=== PATIENT | female | born 1970 | race African-American/Black ===

== ENCOUNTER 2019-11-06 09:53 | Emergency (ER) | payer MEDICARE, OTHER ==
[~2019-11-06] VITALS: Ht 165.1 cm; Wt 72.7 kg
[2019-11-06] MEDS ORDERED: RISP2 PO (10:22)
[2019-11-06] MEDS ORDERED: AMLO2.5T4 PO (10:22)
[2019-11-06 10:56] LABS: BASOPHILS % (AUTO) 0.2 % (0.0-2.0); EOSINOPHILS % (AUTO) 9.3 % (1.0-6.0); HEMATOCRIT 37.1 % (36-46); HEMOGLOBIN 11.8 g/dL (12.0-16.0); LYMPHOCYTES # (AUTO) 1.3 K/uL (1.0-4.8); MEAN CORPUSCULAR HGB CONC 31.9 G/dL (31.0-37.0); MEAN CORPUSCULAR VOLUME 88 fL (80-100); MONOCYTES # (AUTO) 0.6 K/uL (0.1-1.0); MONOCYTES % (AUTO) 9.6 % (2.0-9.0); NEUTROPHILS # (AUTO) 3.6 K/uL (1.8-7.7); NEUTROPHILS % (AUTO) 58.9 % (40.0-70.0); PLATELET COUNT (AUTO) 272 K/uL (150-450); RED BLOOD CELL COUNT(AUTO) 4.23 MIL/uL (4.00-5.20)
[2019-11-06 11:07] LABS: CALCIUM, TOTAL 9.2 mg/dL (8.8-10.5); CREATININE 1.17 mg/dL (0.60-1.30)
[2019-11-06 11:18] LABS: ALBUMIN 3.4 g/dL (3.4-5.0); BILIRUBIN,TOTAL 0.3 mg/dL (0.1-1.0); TOTAL PROTEIN, SERUM 8.6 g/dL (6.4-8.2)
[2019-11-06 12:32] VITALS: BP 107/76
[2019-11-06 12:38] LABS: APPEARANCE,URINE CLOUDY (CLEAR); BILIRUBIN,URINE NEGATIVE (NEGATIVE); GLUCOSE, URINE (UA) NEGATIVE (NEGATIVE); KETONES,URINE NEGATIVE (NEGATIVE); LEUKOCYTE ESTERASE ,URINE LARGE (NEGATIVE); NITRATE,URINE POSITIVE (NEGATIVE); OCCULT BLOOD,URINE TRACE (NEGATIVE); PH,URINE 7.5 (5.0-8.0); PROTEIN,URINE NEGATIVE (NEGATIVE); UROBILINOGEN,URINE 0.2 mg/dL (<=1.0)
[2019-11-06 12:48] LABS: BACTERIA,URINE Many /HPF (None Seen); RBC,URINE 0-2 /HPF (0-2)
[2019-11-06 12:49] LABS: SQUAMOUS EPITHELIAL CELL,UR Few /LPF (None Seen)
== END 2019-11-06 13:38 | disposition home or self-care (01) ==
LOC: EMS 09:57
DX: N39.0 Urinary tract infection, site not specified (principal); R11.2 Nausea with vomiting, unspecified; I10 Essential (primary) hypertension; F20.9 Schizophrenia, unspecified
CPT/HCPCS: 87086

== ENCOUNTER 2024-10-31 16:56 | Inpatient (IN) | payer MEDICARE, OTHER ==
[~2024-10-31] VITALS: Ht 162.6 cm; Wt 77.2 kg
[~2024-10-31 16:56] MED LIST: AMLO2.5T96 PO; RISP2TAB45 PO
[2024-10-31] MEDS ORDERED: BENZ2TAB84 PO (17:18)
[2024-10-31] MEDS ORDERED: CHLO100T36 PO (17:18)
[2024-10-31] MEDS ORDERED: DIVA-111 PO (17:18)
[2024-10-31] MEDS ORDERED: AMLO5TAB66 PO (17:18)
[2024-10-31] MEDS ORDERED: OXYB5TAB20 PO (17:18)
[2024-10-31] MEDS ORDERED: DOCU-412 PO (17:18)
[2024-10-31] MEDS ORDERED: BISA10SU11 PR (17:18)
[2024-10-31] MEDS ORDERED: BISA-184 PO (17:18)
[2024-10-31 17:38] LABS: COVID AG,FIA SOURCE NASAL SWAB
[2024-10-31 17:45] LABS: SARS-COV2 (COVID) ANTIGEN,FIA Negative (Negative)
[2024-10-31 18:02] LABS: INFLUENZA TYPE A NEGATIVE FOR TYPE A (NEGATIVE); INFLUENZA TYPE B NEGATIVE FOR TYPE B (NEGATIVE)
[2024-10-31] MEDS: ALBUTEROL SULFATE 2.5 MG/0.5 ML NEB SOLUTION NEB ONE (19:45)
[2024-10-31 21:15] LABS: BASOPHILS % (AUTO) 0.4 % (0.0-2.0); EOSINOPHILS % (AUTO) 0.2 % (1.0-6.0); HEMATOCRIT 31.2 % (36-46); LYMPHOCYTES # (AUTO) 1.4 K/uL (1.0-4.8); LYMPHOCYTES % (AUTO) 17.9 % (22.0-44.0); MEAN CORPUSCULAR HEMOGLOBIN 28.3 pg (26.0-34.0); MEAN CORPUSCULAR HGB CONC 31.9 G/dL (31.0-37.0); MEAN CORPUSCULAR VOLUME 89 fL (80-100); MONOCYTES # (AUTO) 1.4 K/uL (0.1-1.0); MONOCYTES % (AUTO) 18.5 % (2.0-9.0); NEUTROPHILS # (AUTO) 4.8 K/uL (1.8-7.7); PLATELET COUNT (AUTO) 159 K/uL (150-450); RED BLOOD CELL COUNT(AUTO) 3.52 MIL/uL (4.00-5.20); RED CELL DISTRIBUTION WIDTH 15.2 % (11.5-14.5); WHITE BLOOD COUNT (AUTO) 7.6 K/uL (4.5-11.0)
[2024-10-31 21:25] LABS: ANION GAP 2 mmol/L (8-16); CARBON DIOXIDE 32 mmol/L (22-29); CHLORIDE 95 mmol/L (98-107); GLOMERULAR FILTR. RATE CALC > 60 mL/min (>60); GLUCOSE,RANDOM 90 mg/dL (70-110); POTASSIUM 4.1 mmol/L (3.5-5.1); SODIUM SERUM 129 mmol/L (136-145); UREA NITROGEN, BLOOD 20 mg/dL (7-18)
[2024-10-31 21:33] LABS: TROPONIN I-HIGH SENSITIVITY 4 ng/L (<51)
[2024-10-31 21:34] LABS: LACTIC ACID 0.6 mmol/L (0.4-2.0)
[2024-10-31 21:38] LABS: B-TYPE NATRIURETIC PEPTIDE 7 pg/mL (0-100)
[2024-10-31 22:02] LABS: APPEARANCE,URINE HAZY (CLEAR); BILIRUBIN,URINE NEGATIVE (NEGATIVE); COLOR,URINE LIGHT YELLOW (YELLOW); GLUCOSE, URINE (UA) NEGATIVE (NEGATIVE); KETONES,URINE NEGATIVE (NEGATIVE); LEUKOCYTE ESTERASE ,URINE LARGE (NEGATIVE); NITRATE,URINE POSITIVE (NEGATIVE); OCCULT BLOOD,URINE NEGATIVE (NEGATIVE); PH,URINE 5.5 (5.0-8.0); PROTEIN,URINE NEGATIVE (NEGATIVE); UROBILINOGEN,URINE <=1.0 mg/dL (<=1.0)
[2024-10-31 22:09] LABS: BACTERIA,URINE Many /HPF (None Seen); RBC,URINE 0-2 /HPF (0-2); SQUAMOUS EPITHELIAL CELL,UR Few /LPF (None Seen); WBC,URINE 51-100 /HPF (0-5)
[2024-10-31] MEDS ORDERED: ACET-784 PO (22:19)
[2024-10-31] MEDS ORDERED: ONDA-104 PO (22:19)
[2024-10-31] MEDS ORDERED: [UNRECOGNIZED DRUG - CODE] PO (22:19)
[2024-10-31] MEDS: CefTRIAXone 1 GM/DEXTROSE 50 ML IV ONE (22:31)
[2024-10-31] MEDS: AZITHROMYCIN 500 MG/NS 250 ML IV ONE (22:31)
[2024-10-31] MEDS ORDERED: ONDANSETRON 4 MG TABLET PO PRN (23:30)
[2024-10-31] MEDS ORDERED: BISACODYL 10 MG RECTAL RECTAL SUPPOSITORY PR PRN (23:30)
[2024-10-31] MEDS ORDERED: MORPHINE SULFATE 2 MG/ML SYRINGE IVP PRN (23:30)
[2024-10-31] MEDS ORDERED: ACETAMINOPHEN 325 MG TABLET PO PRN ×2 (23:30)
[2024-10-31] MEDS ORDERED: MAGNESIUM HYDROXIDE SUSPENSION 30 ML UDCUP PO PRN (23:30)
[2024-10-31] MEDS ORDERED: HYDROCODONE/ACETAMINOPHEN 5-325 MG TABLET PO PRN (23:30)
[2024-10-31] MEDS ORDERED: IPRATROPIUM BROMIDE 0.5 MG/2.5 ML NEB SOLUTION NEB PRN (23:30)
[2024-10-31] MEDS ORDERED: ALBUTEROL SULFATE 2.5 MG/0.5 ML NEB SOLUTION NEB PRN (23:30)
[2024-10-31] MEDS ORDERED: ZOLPIDEM TARTRATE 5 MG TABLET PO PRN (23:30)
[2024-10-31] MEDS ORDERED: ONDANSETRON HCL 4 MG/2 ML VIAL IVP PRN (23:30)
[2024-11-01] VITALS (7 sets, daily range): BP systolic 92–119; BP diastolic 46–80; PULSE 75–99; RESP 16–19; TEMP 97.6–99.4; O2SAT 95–100
[2024-11-01] MEDS: HEPARIN SODIUM,PORCINE 5,000 UNITS/ML VIAL SQ SCH (00:46)
[2024-11-01] MEDS ORDERED: INFLUENZA VIRUS VACCINE TVS (6MO+) 2024-25/PF 45 MCG/0.5 ML SYRINGE IM. ONE (04:15)
[2024-11-01] MEDS: RisperiDONE 2 MG TABLET PO SCH (09:29)
[2024-11-01] MEDS: AmLODIPine BESYLATE 5 MG TABLET PO SCH (09:29)
[2024-11-01] MEDS: OXYBUTYNIN CHLORIDE 5 MG TABLET PO SCH (09:29)
[2024-11-01] MEDS: PANTOPRAZOLE SODIUM 40 MG DR TABLET PO SCH (09:29)
[2024-11-01] MEDS: DIVALPROEX SODIUM 250 MG DR TABLET PO SCH (12:46)
[2024-11-01] MEDS: BENZTROPINE MESYLATE 2 MG TABLET PO SCH (12:46)
[2024-11-01] MEDS ORDERED: SODIUM CHLORIDE 0.9% 500 ML IV ONE (21:51)
[2024-11-01] MEDS: CefTRIAXone 1 GM/DEXTROSE 50 ML IV SCH (22:04)
[2024-11-02 05:06] VITALS: BP 91/54; PULSE 78; RESP 16; TEMP 98.2; O2SAT 98
[2024-11-02 06:29] LABS: BASOPHILS % (AUTO) 0.4 % (0.0-2.0); EOSINOPHILS % (AUTO) 2.8 % (1.0-6.0); HEMATOCRIT 27.8 % (36-46); HEMOGLOBIN 9.1 g/dL (12.0-16.0); LYMPHOCYTES # (AUTO) 1.6 K/uL (1.0-4.8); LYMPHOCYTES % (AUTO) 37.3 % (22.0-44.0); MEAN CORPUSCULAR HEMOGLOBIN 28.9 pg (26.0-34.0); MEAN CORPUSCULAR HGB CONC 32.9 G/dL (31.0-37.0); MEAN CORPUSCULAR VOLUME 88 fL (80-100); MONOCYTES # (AUTO) 0.8 K/uL (0.1-1.0); MONOCYTES % (AUTO) 18.3 % (2.0-9.0); NEUTROPHILS # (AUTO) 1.8 K/uL (1.8-7.7); NEUTROPHILS % (AUTO) 41.2 % (40.0-70.0); PLATELET COUNT (AUTO) 170 K/uL (150-450); RED BLOOD CELL COUNT(AUTO) 3.17 MIL/uL (4.00-5.20); RED CELL DISTRIBUTION WIDTH 14.9 % (11.5-14.5); WHITE BLOOD COUNT (AUTO) 4.3 K/uL (4.5-11.0)
[2024-11-02 07:09] LABS: ANION GAP 4 mmol/L (8-16); CALCIUM, TOTAL 7.9 mg/dL (8.8-10.5); CARBON DIOXIDE 31 mmol/L (22-29); CHLORIDE 99 mmol/L (98-107); CREATININE 0.81 mg/dL (0.60-1.30); GLOMERULAR FILTR. RATE CALC > 60 mL/min (>60); GLUCOSE,RANDOM 82 mg/dL (70-110); POTASSIUM 4.2 mmol/L (3.5-5.1); SODIUM SERUM 134 mmol/L (136-145); UREA NITROGEN, BLOOD 15 mg/dL (7-18)
[2024-11-02 08:36] LABS: ALBUMIN 2.2 g/dL (3.4-5.0); BILIRUBIN,DIRECT 0.1 mg/dL (0.00-0.20); BILIRUBIN,TOTAL 0.3 mg/dL (0.1-1.0)
[2024-11-02 08:59] VITALS: BP 96/46; PULSE 82; RESP 18; TEMP 98.3; O2SAT 99
[2024-11-02 12:41] VITALS: BP 109/59; PULSE 81; RESP 18; TEMP 98.3; O2SAT 96
[2024-11-02 16:05] VITALS: BP 106/52; PULSE 78; RESP 18; TEMP 98.2; O2SAT 98
[2024-11-02 19:42] VITALS: BP 100/61; PULSE 78; RESP 18; TEMP 98.7; O2SAT 99
[2024-11-02 23:52] VITALS: BP 94/53; PULSE 78; RESP 18; TEMP 97.7; O2SAT 96
[2024-11-03 04:32] VITALS: BP 135/50; PULSE 70; RESP 18; TEMP 97.9; O2SAT 100
[2024-11-03 07:57] VITALS: BP 110/58; PULSE 74; RESP 20; TEMP 98.5; O2SAT 98
[2024-11-03 12:14] VITALS: BP 114/73; PULSE 74; RESP 18; TEMP 98.9; O2SAT 95
[2024-11-03] MEDS: DOXYCYCLINE HYCLATE 100 MG in DEXTROSE 5%-WATER 100 ML IV SCH (15:36)
[2024-11-03 16:00] VITALS: BP 84/50; PULSE 87; RESP 18; TEMP 98.7; O2SAT 97
[2024-11-03] MEDS: SODIUM CHLORIDE 0.9% 250 ML IV ONE (18:46)
[2024-11-03 20:15] VITALS: BP 97/59; PULSE 89; RESP 17; TEMP 97.6; O2SAT 95
[2024-11-03] MEDS: SODIUM CHLORIDE 0.9% 1,000 ML IV ONE (20:31)
[2024-11-04] VITALS (7 sets, daily range): BP systolic 19–119; BP diastolic 48–75; PULSE 80–95; RESP 18–19; TEMP 97.6–98.6; O2SAT 93–97
[2024-11-04] MEDS ORDERED: SODIUM CHLORIDE 0.9% 250 ML IV ONE (18:32)
[2024-11-05 04:40] VITALS: BP 101/65; PULSE 75; RESP 18; TEMP 97.7; O2SAT 95
[2024-11-05 06:07] LABS: HIV 1-2 SCREEN 4TH GEN W/RFLX Non Reactive (Non Reactive)
[2024-11-05 07:58] VITALS: BP 98/53; PULSE 83; RESP 19; TEMP 98.3; O2SAT 97
[2024-11-05 11:03] VITALS: BP 121/80; PULSE 85; RESP 18; TEMP 98.1; O2SAT 99
[2024-11-05 15:08] VITALS: BP 113/76; PULSE 68; RESP 18; TEMP 98; O2SAT 97
[2024-11-05] MEDS: LORazepam 2 MG/ML VIAL IVP ONE ×2 (16:09→17:46)
[2024-11-05 20:52] VITALS: BP 108/74; PULSE 84; RESP 19; TEMP 98; O2SAT 99
[2024-11-06] MEDS: LORazepam 2 MG/ML VIAL IVP PRN (00:51)
[2024-11-06 00:52] LABS: MTB PCR w/Rif. Resistance-SPUT NOT DETECTED (Not Detectd)
[2024-11-06 04:00] VITALS: BP 100/71; PULSE 83; RESP 16; TEMP 97.7; O2SAT 98
[2024-11-06 08:03] VITALS: BP 100/69; PULSE 94; RESP 17; TEMP 98.9; O2SAT 97
[2024-11-06 13:40] LABS: MTB PCR w/Rif. Resistance-SPUT NOT DETECTED (Not Detectd)
[2024-11-06 17:15] VITALS: BP 122/78; PULSE 102; RESP 18; TEMP 98.1; O2SAT 96
[2024-11-06 20:17] VITALS: BP 104/65; PULSE 100; RESP 19; TEMP 99; O2SAT 97
[2024-11-07] VITALS: BP 111/66; PULSE 82; RESP 16; TEMP 98.7; O2SAT 95
[2024-11-07 04:00] VITALS: BP 101/71; PULSE 84; RESP 18; TEMP 98.3; O2SAT 96
[2024-11-07 08:46] VITALS: BP 104/75; PULSE 96; RESP 17; TEMP 97.8; O2SAT 95
[2024-11-07 10:07] LABS: S PNEUMO SOURCE Urine; STREP PNEUMONIAE AG URINE Negative (Negative)
[2024-11-07 12:05] VITALS: BP 100/68; PULSE 90; RESP 18; TEMP 97.9; O2SAT 96
[2024-11-07 12:22] LABS: BASOPHILS % (AUTO) 0.4 % (0.0-2.0); EOSINOPHILS % (AUTO) 3.3 % (1.0-6.0); HEMATOCRIT 30.1 % (36-46); HEMOGLOBIN 9.7 g/dL (12.0-16.0); LYMPHOCYTES # (AUTO) 2.1 K/uL (1.0-4.8); LYMPHOCYTES % (AUTO) 34.1 % (22.0-44.0); MEAN CORPUSCULAR HEMOGLOBIN 28.5 pg (26.0-34.0); MEAN CORPUSCULAR HGB CONC 32.1 G/dL (31.0-37.0); MEAN CORPUSCULAR VOLUME 89 fL (80-100); MONOCYTES # (AUTO) 0.7 K/uL (0.1-1.0); MONOCYTES % (AUTO) 11.9 % (2.0-9.0); NEUTROPHILS % (AUTO) 50.3 % (40.0-70.0); PLATELET COUNT (AUTO) 304 K/uL (150-450); RED BLOOD CELL COUNT(AUTO) 3.39 MIL/uL (4.00-5.20)
[2024-11-07 12:30] LABS: ANION GAP 6 mmol/L (8-16); CALCIUM, TOTAL 8.5 mg/dL (8.8-10.5); CARBON DIOXIDE 30 mmol/L (22-29); CHLORIDE 104 mmol/L (98-107); GLOMERULAR FILTR. RATE CALC > 60 mL/min (>60); GLUCOSE,RANDOM 111 mg/dL (70-110); POTASSIUM 4.4 mmol/L (3.5-5.1); SODIUM SERUM 140 mmol/L (136-145); UREA NITROGEN, BLOOD 23 mg/dL (7-18)
[2024-11-07 18:50] VITALS: BP 124/63; PULSE 92; RESP 16; TEMP 98.7; O2SAT 100
[2024-11-07 20:00] VITALS: BP 98/56; PULSE 62; RESP 18; TEMP 98.4; O2SAT 98
[2024-11-08 00:08] VITALS: BP 97/50; PULSE 88; RESP 18; TEMP 97.8; O2SAT 98
[2024-11-08 02:07] LABS: QUANTIFERON+, Nil Value 0.05 IU/mL; QUANTIFERON+,Mitogen Value 0.78 IU/mL; QUANTIFERON+,TB1 Antigen Value 0.11 IU/mL; QUANTIFERON+,TB2 Antigen Value 0.09 IU/mL; QUANTIFERON, TB GOLD PLUS Negative (Negative)
[2024-11-08 04:53] VITALS: BP 97/57; PULSE 79; RESP 18; TEMP 97.9; O2SAT 98
[2024-11-08 09:22] VITALS: BP 101/57; PULSE 80; RESP 18; TEMP 98.2; O2SAT 98
[2024-11-08 16:17] VITALS: BP 98/61; PULSE 83; RESP 18; TEMP 98.2; O2SAT 99
[2024-11-08 19:54] VITALS: BP 103/60; PULSE 82; RESP 16; TEMP 98.5; O2SAT 100
[2024-11-09 00:12] VITALS: BP 107/59; PULSE 73; RESP 17; TEMP 98.1; O2SAT 95
[2024-11-09 05:20] VITALS: BP 96/66; PULSE 74; RESP 16; TEMP 98; O2SAT 96
[2024-11-09 08:14] LABS: BASOPHILS % (AUTO) 0.7 % (0.0-2.0); EOSINOPHILS % (AUTO) 4.1 % (1.0-6.0); HEMATOCRIT 30.7 % (36-46); HEMOGLOBIN 9.8 g/dL (12.0-16.0); LYMPHOCYTES # (AUTO) 1.9 K/uL (1.0-4.8); LYMPHOCYTES % (AUTO) 29.2 % (22.0-44.0); MEAN CORPUSCULAR HEMOGLOBIN 28.5 pg (26.0-34.0); MEAN CORPUSCULAR HGB CONC 31.8 G/dL (31.0-37.0); MEAN CORPUSCULAR VOLUME 90 fL (80-100); MONOCYTES # (AUTO) 0.8 K/uL (0.1-1.0); NEUTROPHILS # (AUTO) 3.4 K/uL (1.8-7.7); PLATELET COUNT (AUTO) 354 K/uL (150-450); RED BLOOD CELL COUNT(AUTO) 3.43 MIL/uL (4.00-5.20); RED CELL DISTRIBUTION WIDTH 15.2 % (11.5-14.5); WHITE BLOOD COUNT (AUTO) 6.4 K/uL (4.5-11.0)
[2024-11-09 08:22] LABS: ANION GAP 7 mmol/L (8-16); CALCIUM, TOTAL 9.1 mg/dL (8.8-10.5); CARBON DIOXIDE 30 mmol/L (22-29); CHLORIDE 105 mmol/L (98-107); CREATININE 0.76 mg/dL (0.60-1.30); GLOMERULAR FILTR. RATE CALC > 60 mL/min (>60); GLUCOSE,RANDOM 87 mg/dL (70-110); POTASSIUM 4.3 mmol/L (3.5-5.1); SODIUM SERUM 142 mmol/L (136-145); UREA NITROGEN, BLOOD 18 mg/dL (7-18)
[2024-11-09 08:40] VITALS: BP 102/61; PULSE 72; RESP 18; TEMP 98.1; O2SAT 97
[2024-11-09 12:03] VITALS: BP 95/61; PULSE 88; RESP 16; TEMP 98.5; O2SAT 97
[2024-11-09 15:30] VITALS: BP 85/58; PULSE 83; RESP 16; TEMP 98.8; O2SAT 98
[2024-11-09 20:00] VITALS: BP 103/67; PULSE 74; RESP 17; TEMP 98.8; O2SAT 98
[2024-11-10] VITALS: BP 102/72; PULSE 82; RESP 18; TEMP 98.2; O2SAT 97
[2024-11-10 11:05] VITALS: BP 94/53; PULSE 85; RESP 18; TEMP 97.7; O2SAT 99
[2024-11-11 05:08] LABS: COCCI IGG TITER COMP.FIX-KERN <1:2; COCCIOIDES AB IGG (ID)-KERN Non Reactive; COCCIOIDES AB IGM (ID)-KERN Non Reactive
== END 2024-11-10 15:13 | disposition home or self-care (01) | DRG 177 ==
LOC: EMS 16:59 → EDH 21:56 → 5S 23:50
PROVIDERS: ADMIT Hospitalist; ATTEND Hospitalist
DX: J69.0 Pneumonitis due to inhalation of food and vomit (principal); J96.00 Acute respiratory failure, unspecified whether with hypoxia or hypercapnia; E87.1 Hypo-osmolality and hyponatremia; N39.0 Urinary tract infection, site not specified; F20.9 Schizophrenia, unspecified; D64.9 Anemia, unspecified; I10 Essential (primary) hypertension; Z20.822 Contact with and (suspected) exposure to COVID-19; B96.20 Unspecified Escherichia coli [E. coli] as the cause of diseases classified elsewhere; R62.50 Unspecified lack of expected normal physiological development in childhood; N32.81 Overactive bladder; D72.819 Decreased white blood cell count, unspecified; Z91.199 Patient's noncompliance with other medical treatment and regimen due to unspecified reason
CPT/HCPCS: 71045; 71250; 80048; 81001; 82248; 83605; 83880; 84484; 85025; 86171; 86480; 87015; 87040; 87077; 87086; 87186; 87206; 87389; 87449; 87556; 87804; 87899; 92526; 92610; 93005; 94640; 94799; 99285; G0378; J0456; J0696; J1644; J2060; J3490; J7030; J7040; J7050; J7060; 36415-L1; 36415-TC